=== PATIENT | male | born 1940 | race Caucasian/White ===

== ENCOUNTER 2020-07-06 00:34 | Outpatient (CLI) | payer MEDICARE, SELFPAY ==
[2020-07-06 17:26] LABS: SARS-CoV-2 RNA PCR Negative
== END 2020-07-06 00:35 | disposition home or self-care (01) ==
LOC: ANHCOVIDDT 00:34
PROVIDERS: Visit Provider Urology
DX: Z01.812 Encounter for preprocedural laboratory examination (principal); Z11.59 Encounter for screening for other viral diseases
CPT/HCPCS: 87635; C9803; U0003

== ENCOUNTER 2020-07-08 01:11 | Day surgery (SDC) | payer MEDICARE, SELFPAY ==
[2020-07-05 14:25] VITALS: BMI 22.1
--- NOTE | 2020-07-08 06:58 | P.HP_ITS ---
History of Present Illness History of Present Illness Consent: Risks, benefits, and alternatives have been discussed and questions answered. Patient agrees to proceed with procedure. Chief complaint: Bulbous Urethral Stricture Narrative: Jaciel Campos is a 80 year old male with history of urethral stricture disease. He had urethral dilatation in 10/2019 and now presents with bladder outlet obstruction both by symptoms and urodynamics. Review of Systems Cardiovascular: Cardiovascular: Denies chest pain, Denies lightheadedness, Denies palpitations and Denies dyspnea Respiratory: Respiratory: Denies dyspnea Gastrointestinal: Gastrointestinal: Denies diarrhea, Denies nausea and Denies vomiting Genitourinary: Genitourinary: Denies hematuria and Denies dysuria Endocrine: Endocrine: Denies palpitations [facility] Past Medical History Medical History CAD (coronary artery disease) GERD (gastroesophageal reflux disease) Hyperlipidemia Hypertension Surgical History Surgical History Stented coronary artery Social History Social History Smoking packs per day: 1 Smoking cigarettes per day: 20.0 Years smoked: 30 Smoking pack-years: 30.00 Smoking status: Former smoker Smoking end date: 10/22/81 Alcohol intake: former Drinks per week: 16 Substance use: never Living arrangements: with family Gender identity (if verbalized by the patient): Male Spiritual care concerns: No Meds Home Medications and Allergies Home Medications Medication Instructions Recorded Confirmed Type Xarelto 2.5 mg PO BID 11/05/19 07/05/20 History aspirin 325 mg PO DAILY 11/05/19 07/05/20 History citalopram [Celexa] 20 mg PO QAM 11/05/19 07/05/20 History lisinopril 10 mg PO QAM 11/05/19 07/05/20 History metoprolol succinate [Toprol XL] 25 mg PO QAM 11/05/19 07/05/20 History pantoprazole [Protonix] 40 mg PO QAM 11/05/19 07/05/20 History atorvastatin 20 mg PO HS 07/05/20 07/05/20 History Allergies Allergy/AdvReac Type Severity Reaction Status Date / Time iodine Allergy Intermediate Hives Verified 07/05/20 14:00 Exam Const: General: no acute distress Resp: Effort & Inspection: normal respiratory effort GI: Inspection: non-distended GI Palp: No abdominal tenderness and No Guarding due to palpation present (GI) Auscultation: normal bowel sounds Assessment and Plan Assessment and plan (1) Urethral stricture: Code(s): N35.919 - Unspecified urethral stricture, male, unspecified site Status: Acute (2) Bladder neck contracture: Code(s): N32.0 - Bladder-neck obstruction Status: Acute Assessment and Plan: * Optical internal urethrotomy.
[2020-07-08 07:00] VITALS: BP 141/55; PULSE 48; RESP 20; TEMP 36.7; O2SAT 99
[2020-07-08] MEDS: LACTATED RINGERS 1,000 ML 30 ML IV CONT (07:00)
--- NOTE | 2020-07-08 07:08 | WPDHPUPDATE1 ---
History and Physical Update Update Date/Time: 07/08/20 07:08 History and Physical has been reviewed, including an updated exam of the patient. There are NO changes in the patient's condition. Risks, benefits, and alternatives have been discussed and questions answered. Patient agrees to proceed with procedure.
--- NOTE | 2020-07-08 07:12 | WPDANESEPP ---
Anes - Eval Pre Procedure Procedure: Operation Date: 07/08/20 07:30 Proposed Procedures p Optical Internal Urethrotomy - See Ewing MD Date/Time: 07/08/20 07:12 Surgeon: rafi Preop Diagnosis: bulbous urethral stricture Pre Op Diagnosis: Bulbous Urethral Stricture Patient Data Age: 80 Gender: M Height: 5 ft 11 in Weight: 72 kg Allergies Allergy/AdvReac Type Severity Reaction Status Date / Time iodine Allergy Intermediate Hives Verified 07/05/20 14:00 Home Medications Medication Instructions Recorded Confirmed Type Xarelto 2.5 mg PO BID 11/05/19 07/05/20 History aspirin 325 mg PO DAILY 11/05/19 07/05/20 History citalopram [Celexa] 20 mg PO QAM 11/05/19 07/05/20 History lisinopril 10 mg PO QAM 11/05/19 07/05/20 History metoprolol succinate [Toprol XL] 25 mg PO QAM 11/05/19 07/05/20 History pantoprazole [Protonix] 40 mg PO QAM 11/05/19 07/05/20 History atorvastatin 20 mg PO HS 07/05/20 07/05/20 History Patient hx anesthesia problems: none Family hx anesthesia problems: none PMFSH Past Medical History Medical History CAD (coronary artery disease) Former smoker GERD (gastroesophageal reflux disease) Hyperlipidemia Hypertension Surgical History Surgical History Stented coronary artery Social History Social History Smoking packs per day: 1 Smoking cigarettes per day: 20.0 Years smoked: 30 Smoking pack-years: 30.00 Smoking status: Former smoker Smoking end date: 10/22/81 Alcohol intake: former Drinks per week: 16 Substance use: never Living arrangements: with family Gender identity (if verbalized by the patient): Male Spiritual care concerns: No Exam Day of Procedure 07/08/20 07:12 Patient weight: normal Heart: regular rate and rhythm Lungs: clear to auscultation Airway: Mallampati scale class II Neurological: alert and oriented
--- NOTE | 2020-07-08 07:16 | WPDANESEPPF ---
Anes - Initial Pre Proc Eval Procedure: Operation Date: 07/08/20 07:30 Proposed Procedures p Optical Internal Urethrotomy - See Ewing MD Date/Time: 07/08/20 07:16 Surgeon: See Ewing MD Pre Op Diagnosis: Bulbous Urethral Stricture Patient Data Age: 80 Gender: M Height: 5 ft 11 in Weight: 72 kg Allergies Allergy/AdvReac Type Severity Reaction Status Date / Time iodine Allergy Intermediate Hives Verified 07/05/20 14:00 Home Medications Medication Instructions Recorded Confirmed Type Xarelto 2.5 mg PO BID 11/05/19 07/05/20 History aspirin 325 mg PO DAILY 11/05/19 07/05/20 History citalopram [Celexa] 20 mg PO QAM 11/05/19 07/05/20 History lisinopril 10 mg PO QAM 11/05/19 07/05/20 History metoprolol succinate [Toprol XL] 25 mg PO QAM 11/05/19 07/05/20 History pantoprazole [Protonix] 40 mg PO QAM 11/05/19 07/05/20 History atorvastatin 20 mg PO HS 07/05/20 07/05/20 History Patient hx anesthesia problems: none Family hx anesthesia problems: none PMFSH Past Medical History Medical History Bladder cancer CAD (coronary artery disease) Former smoker GERD (gastroesophageal reflux disease) Hyperlipidemia Hypertension Prostate CA Surgical History Surgical History Stented coronary artery Social History Social History Smoking packs per day: 1 Smoking cigarettes per day: 20.0 Years smoked: 30 Smoking pack-years: 30.00 Smoking status: Former smoker Smoking end date: 10/22/81 Alcohol intake: former Drinks per week: 16 Substance use: never Living arrangements: with family Gender identity (if verbalized by the patient): Male Spiritual care concerns: No Anes - Eval Final PreProcedure Day of Procedure 07/08/20 07:16 Patient weight: normal Heart: regular rate and rhythm Lungs: decreased breath sounds Airway: Mallampati scale class 1 Neurological: alert and oriented Last oral intake: >/= 8 hours ASA classification: III Emergent: no Anesthetic plan: proceed Anesthesia type and monitoring: general GIVS and standard monitoring Informed Consent: The patient's anesthetic plan and its attendant risks and benefits were discussed with the patient/family/POA. Questions were solicited and answers provided to the satisfaction of the patient/family/POA.
[2020-07-08] MEDS: ceFAZolin 2 GM/D5W 50 ML 2 GM/50 ML BAG IVPB (07:21)
[2020-07-08] MEDS: LIDOCAINE HCL 2% GEL UROJET 10 ML PKG MUCOUS MEM (07:32)
--- NOTE | 2020-07-08 07:43 | P.OP_ITS ---
Procedure Note - Detailed Date of procedure: 07/08/20 Pre-op diagnosis: Bulbous Urethral Stricture Post-op diagnosis: same Procedure performed: Optical internal urethrotomy Description of procedure: The patient was brought to the operative suite where he was prepped and draped in a routine sterile fashion while in a dorsal lithotomy position after the uneventful administration of systemic sedation by the anesthesia department. 2% Lidocaine was placed in the urethra and allowed to stand for an appropriate period of time. Cystoscopy was undertaken with a 19F rigid cystoscope. He has a moderately constricting stricture of the bulbous u rethra. The bladder itself was endoscopically normal without foreign body or neoplasm. The bladder mucosa was without hyperemia. There was a single orthotopic ureteral orifice bilaterally with clear reflex of urine. Using the optical urethratome, I incised the strictured urethra at the 12 o'clock position care taken to avoid injury to the membranous urethra. An 18F Gamble catheter was placed, the bladder was emptied and the patient was taken to the recovery room in good condition. Anesthesia: GLMA Surgeon: See Ewing MD Drains: Yes (18F Gamble) Packing: No Pathology: yes Complications: No immediate complications Condition: stable Disposition: PACU
[2020-07-08 07:45] VITALS: BP 127/56; PULSE 48; RESP 12; O2SAT 99
[2020-07-08 08:15] VITALS: BP 176/68; PULSE 52; RESP 16
[2020-07-08 08:45] VITALS: BP 179/65; PULSE 48; RESP 16
--- NOTE | 2020-07-08 09:48 | SUR.PHASEII ---
0855 eleazar whitmore rn is changing bueno cath bag to a leg bag, and sending pt home with big bag for at night, per dr mckee orders. pt tolerated procedure well.
== END 2020-07-08 09:20 | disposition home or self-care (01) ==
PROVIDERS: Visit Provider Urology
PROC: (CPT 52276; principal; 2020-07-08 07:30)
DX: N35.812 Other bulbous urethral stricture, male (principal); N32.0 Bladder-neck obstruction; I25.10 Atherosclerotic heart disease of native coronary artery without angina pectoris; I10 Essential (primary) hypertension; E78.5 Hyperlipidemia, unspecified; K21.9 Gastro-esophageal reflux disease without esophagitis; Z95.5 Presence of coronary angioplasty implant and graft; Z87.891 Personal history of nicotine dependence; Z79.01 Long term (current) use of anticoagulants
CPT/HCPCS: 52276; A9270; C1769; J0690; J2704; J3010; J7120

== ENCOUNTER 2022-06-15 00:29 | Day surgery (SDC) | payer MEDICARE, SELFPAY ==
[2022-06-13 13:12] VITALS: BMI 22.4
--- NOTE | 2022-06-13 13:30 | PC.NURSE ---
Report to the Outpatient Waiting Room, entrance under the green pavilion located off [facility], at time __0945 on date ___06/15/22____. OR Time: 1144___. - You and your visitor will be asked to self-screen and do not enter if you have any COVID symptoms. - Only one visitor and NO children visitors are allowed at this time. - The patient visitor is requested to leave or wait in car when not with patient due to restrictions. - A mask is required within the hospital. Patients may have clear liquids (water, carbonated beverages, clear teas, apple juice) until 3 hours prior to surgery (0845 AM) with a maximum of 20 ounces. - No food from midnight until time of surgery - Infants may have breast milk until 4 hours before surgery, formula 6 hours prior to surgery. - Children will be allowed to drink immediately following surgery. If applicable, please bring a bottle or sippy cup to assist with drinking. Juice, water, soda, and popsicles are readily available. For infants on formula, please bring formula the day of surgery. Pacifiers are allowed. Take the following medications with a SIP of water the morning of surgery: ____METOPROLOL Medications to discontinue ASPIRIN PER DR MARIO'S INSTRUCTIONS Date to take last dose Please no make-up, nail khmer, hairspray, perfume, deodorant, or body powder the day of surgery. No jewelry (including any body piercings) or valuables the day of surgery, leave them at home. Please take a shower or bath the night before, or the morning of, surgery with an antibacterial soap. Wear comfortable, loose fitting clothing. Children are encouraged to wear pajamas. - Jewelry must be removed prior to entering the operating room. Rings and piercings that are not removed may be cut off. - The hospital will not accept responsibility for valuables. - Please leave all valuables, including medications, at home the day of surgery. If you are going home after surgery, a licensed milk driver must drive you home. - NO public transportation without another adult. - We recommend that an adult stay with you for 24 hours following discharge. - We also recommend that you do not drive, make important decision, drink alcoholic beverages, or take any drugs that were not prescribed by your health care provider for at least 24 hours after your discharge time. For Pediatric surgeries, we recommend two adults accompany the child home (only one inside the building at this time). Follow any additional instructions given to you from your surgeon. If you or anyone in your household have experienced Covid symptoms in the past week, please notify your surgeon or the nurse liaison at the phone number below for possible testing. Telephone instructions given to ___PT and asked if any additional questions and then verbalized understanding. Patient advised to call surgeon office or pre surgery nurse liaison [phone] if any additional questions.
--- NOTE | 2022-06-14 13:12 | P.PNAN_ITS ---
Anes - Initial Pre Proc Eval Procedure: Operation Date: 06/15/22 11:45 Proposed Procedures p Optical Internal Urethrotomy - See Ewing MD Date/Time: 06/14/22 13:12 Surgeon: See Ewing MD Pre Op Diagnosis: urethral stricture Patient Data Age: 82 Gender: M Height: 1.8 m Weight: 72.72 kg Allergies Allergy/AdvReac Type Severity Reaction Status Date / Time iodine Allergy Intermediate Hives Verified 06/13/22 13:09 Home Medications Medication Instructions Recorded Confirmed Type aspirin 325 mg tablet 325 mg PO DAILY 11/05/19 06/13/22 History citalopram 20 mg tablet (Celexa) 20 mg PO QAM 11/05/19 06/13/22 History lisinopril 10 mg tablet 10 mg PO QAM 11/05/19 06/13/22 History metoprolol succinate 25 mg 25 mg PO QAM 11/05/19 06/13/22 History tablet,extended release 24 hr (Toprol XL) pantoprazole 40 mg tablet,delayed 40 mg PO QAM 11/05/19 06/13/22 History release (Protonix) atorvastatin 20 mg tablet 20 mg PO HS 07/05/20 06/13/22 History Patient hx anesthesia problems: none Family hx anesthesia problems: none Results Review: All pre-operative results and documents have been reviewed as part of the pre- operative evaluation. [facility] Past Medical History Medical History Bladder cancer CAD (coronary artery disease) Former smoker GERD (gastroesophageal reflux disease) Hyperlipidemia Hypertension Prostate CA Surgical History Surgical History Stented coronary artery Social History Social History Smoking packs per day: 1 Smoking cigarettes per day: 20.0 Years smoked: 30 Smoking pack-years: 30.00 Smoking status: Former smoker Tobacco type: cigarettes Second hand tobacco smoke exposure: No Smoking end date: 10/22/81 Additional smoking assessment comments: [id number] Alcohol intake: former Drinks per week: 16 Alcohol use details: QUIT 2010 Substance use: never Substance use type: does not use Living arrangements: with family Gender identity (if verbalized by the patient): Male Spiritual care concerns: No Anes - Eval Final PreProcedure Day of Procedure 06/14/22 13:12 Patient weight: normal Heart: regular rate and rhythm Lungs: decreased breath sounds Airway: Mallampati scale class 1 Neurological: alert and oriented Last oral intake: >/= 8 hours ASA classification: III Emergent: no Anesthetic plan: proceed Anesthesia type and monitoring: general GIVS and standard monitoring Results Review: All pre-operative results and documents have been reviewed as part of the pre- operative evaluation. Informed Consent: The patient's anesthetic plan and its attendant risks and benefits were discussed with the patient/family/POA. Questions were solicited and answers provided to the satisfaction of the patient/family/POA.
--- NOTE | 2022-06-15 06:49 | WPDHPUPDATE1 ---
History and Physical Update Update Date/Time: 06/15/22 06:49 History and Physical has been reviewed, including an updated exam of the patient. There are NO changes in the patient's condition. Risks, benefits, and alternatives have been discussed and questions answered. Patient agrees to proceed with procedure.
--- NOTE | 2022-06-15 08:40 | ECG_ITS ---
Measurements Intervals [place] Rate: 42 P: 68 CO: 206 QRS: 29 QRSD: 104 T: 77 QT: 496 QTc: 417 Interpretive Statements SINUS BRADYCARDIA WITH FIRST-DEGREE AV BLOCK BORDERLINE ECG NO PREVIOUS ECG AVAILABLE FOR COMPARISON Electronically Signed On 06-15-2022 15:23:52 CDT by Nicko Velez M.D.
[2022-06-15 10:04] VITALS: BP 173/60; PULSE 42; RESP 16; TEMP 36.2; O2SAT 100
[2022-06-15] MEDS: LACTATED RINGERS 1,000 ML 30 ML IV CONT (10:38)
[2022-06-15] MEDS: ceFAZolin 2 GM/D5W 50 ML 2 GM/50 ML BAG IVPB (11:18)
[2022-06-15] MEDS: LIDOCAINE HCL 2% GEL UROJET 10 ML PKG MUCOUS MEM (11:36)
[2022-06-15 11:51] VITALS: BP 113/46; PULSE 40; RESP 15; O2SAT 100
[2022-06-15 12:15] VITALS: BP 146/55; PULSE 44; RESP 20
--- NOTE | 2022-06-15 12:19 | W.PM.PROC2 ---
Procedure Note - Detailed Date of Procedure 06/15/22 Pre-op Diagnosis U rethral stricture Post-op Diagnosis Same Procedure Performed Optical internal urethrotomy Surgeon See Ewing MD Description of Procedure The patient was brought to the operative suite where he was prepped and draped in a routine sterile fashion while in a dorsal lithotomy position after the uneventful administration of systemic sedation by the anesthesia department. 2% Lidocaine was placed in the urethra and allowed to stand for an appropriate period of time. Cystoscopy was undertaken with a 19F rigid cystoscope. He has a moderately constricting stricture of the bulbous urethra. The bladder itself was endoscopically normal without foreign body or neoplasm. The bladder mucosa was without hyperemia. There was a single orthotopic ureteral orifice bilaterally with clear reflex of urine. Using the optical urethrotome, I incised the strictured urethra at the 12 o'clock position care taken to avoid injury to the membranous urethra. An 18F Gamble catheter was placed, the bladder was emptied and the patient was taken to the recovery room in good condition. Drains Yes Pathology None sent Complications No immediate complications Condition Stable
[2022-06-15 12:45] VITALS: BP 137/96; PULSE 52; RESP 20
[2022-06-15 13:15] VITALS: BP 129/53; PULSE 50; RESP 20
== END 2022-06-15 13:25 | disposition home or self-care (01) ==
PROVIDERS: Visit Provider Urology
PROC: (CPT 52276; principal; 2022-06-15 11:45)
DX: N99.111 Postprocedural bulbous urethral stricture, male (principal); N52.9 Male erectile dysfunction, unspecified; Z85.51 Personal history of malignant neoplasm of bladder; Z85.46 Personal history of malignant neoplasm of prostate; Z79.82 Long term (current) use of aspirin; R00.1 Bradycardia, unspecified; I44.0 Atrioventricular block, first degree; I25.10 Atherosclerotic heart disease of native coronary artery without angina pectoris; K21.9 Gastro-esophageal reflux disease without esophagitis; Z87.891 Personal history of nicotine dependence; I10 Essential (primary) hypertension; E78.5 Hyperlipidemia, unspecified; Z95.5 Presence of coronary angioplasty implant and graft
CPT/HCPCS: 52276; 93005; A9270; C1769; J0690; J2704; J7120

== ENCOUNTER 2023-04-26 03:40 | Day surgery (SDC) | payer MEDICARE, SELFPAY ==
[2023-04-19 09:35] VITALS: BMI 23.1
--- NOTE | 2023-04-19 09:49 | PC.NURSE ---
PRE-OP INSTRUCTIONS, PLEASE READ CAREFULLY Report to the Outpatient Waiting Room, entrance under the green pavilion located off [facility], at time _0815_ on date _04/26/23_. Planned Procedure Time: _1015_. Time changes happen often and if your time is changed the preop area will call you the afternoon before. - You and your visitor will be asked to self-screen and do not enter if you have any COVID symptoms. - A mask is optional within the hospital at this time. Patients may have clear liquids (water, carbonated beverages, clear teas, apple juice) until 3 hours prior to surgery (0725 AM) with a maximum of 20 ounces. - No food from midnight until time of surgery Take the following medications with a SIP of water the morning of surgery: _CELEXA, TOPROL_ DO NOT STOP ANY OF YOUR OTHER PRESCRIPTION MEDICATIONS PRIOR TO SURGERY ?EXCEPT THE FOLLOWING Medications to discontinue - _ASPIRIN PER DR. MARIO'S INSTRUCTIONS_ Please no make-up, nail albanian, hairspray, perfume, deodorant, or body powder the day of surgery. No jewelry (including any body piercings) or valuables the day of surgery, leave them at home. Please take a shower or bath the night before, or the morning of, surgery with an antibacterial soap. Wear comfortable, loose fitting clothing. Children are encouraged to wear pajamas. - Jewelry must be removed prior to entering the operating room. Rings and piercings that are not removed may be cut off. - The hospital will not accept responsibility for valuables. - Please leave all valuables, including medications, at home the day of surgery. If you are going home after surgery, a licensed piledriver carpenter must drive you home. - NO public transportation without another adult if you receive anesthesia. - We recommend that an adult stay with you for 24 hours following discharge. - We also recommend that you do not drive, make important decision, drink alcoholic beverages, or take any drugs that were not prescribed by your health care provider for at least 24 hours after your discharge time. Follow any additional instructions given to you from your surgeon. If you or anyone in your household have experienced Covid symptoms in the past week, please notify your surgeon or the nurse liaison at the phone number below for possible testing. Telephone instructions given to _PATIENT_and asked if any additional questions and then verbalized understanding. Patient advised to call surgeon office or pre surgery nurse liaison [phone] if any additional questions.
--- NOTE | 2023-04-20 12:09 | P.HP_ITS ---
History of Present Illness History of Present Illness Consent: Risks, benefits, and alternatives have been discussed and questions answered. Patient agrees to proceed with procedure. Chief complaint: bladder CA and bulbulous urethral stricture Narrative: Jaciel Campos is a 83 year old male with a history of both recurrent urothelial carcinoma bladder and recurrent urethral stricture disease. Recent attempted surveillance cystoscopy was on successive because of recurrent bulbous urethral stricture. Presents today for cysto with urethral dilatation and possible TURBT. He is aware the risk including, but not limited to, adverse cardiopulmonary events and recurrent stricture and neoplasm of the bladder Review of Systems Review of Systems: All systems reviewed & are unremarkable except as noted in HPI and below PMFSH Past Medical History Medical History Bladder cancer CAD (coronary artery disease) Former smoker GERD (gastroesophageal reflux disease) Hyperlipidemia Hypertension Prostate CA Surgical History Surgical History Stented coronary artery Social History Social History Smoking packs per day: 1 Smoking cigarettes per day: 20.0 Years smoked: 30 Smoking pack-years: 30.00 Smoking status: Former smoker Tobacco type: cigarettes Second hand tobacco smoke exposure: No Smoking end date: 10/22/79 Additional smoking assessment comments: [id number] Alcohol intake: former Drinks per week: 16 Alcohol use details: QUIT 2010 Substance use: never Substance use type: does not use Living arrangements: alone Gender identity (if verbalized by the patient): Male Spiritual care concerns: No Meds Home Medications and Allergies Home Medications Medication Instructions Recorded Confirmed Type citalopram 20 mg tablet (Celexa) 20 mg PO QAM 11/05/19 04/19/23 History lisinopril 10 mg tablet 10 mg PO QAM 11/05/19 04/19/23 History metoprolol succinate 25 mg 25 mg PO QAM 11/05/19 04/19/23 History tablet,extended release 24 hr (Toprol XL) pantoprazole 40 mg tablet,delayed 40 mg PO QAM 11/05/19 04/19/23 History release (Protonix) atorvastatin 20 mg tablet 20 mg PO HS 07/05/20 04/19/23 History aspirin 81 mg tablet,delayed 81 mg PO DAILY 04/19/23 04/19/23 History release Allergies Allergy/AdvReac Type Severity Reaction Status Date / Time iodine Allergy Intermediate Hives Verified 04/19/23 09:32 Exam Const: General: no acute distress Resp: Effort & Inspection: normal respiratory effort GI: Inspection: non-distended GI Palp: No abdominal tenderness and No Guarding due to palpation present (GI) Auscultation: normal bowel sounds Assessment and Plan Assessment and plan (1) Urethral stricture: Code(s): N35.919 - Unspecified urethral stricture, male, unspecified site Status: Acute Assessment and Plan: * Cystoscopy, urethral dilatation, possible TURBT
--- NOTE | 2023-04-25 13:34 | WPDANESEPPF ---
Anes - Initial Pre Proc Eval Procedure: Operation Date: 04/26/23 09:15 Proposed Procedures p Cystoscopy, Urethral Dilatation, - See Ewing MD s Possible Transurethral Resection of Bladder Tumor - See Ewing MD Date/Time: 04/25/23 13:34 Surgeon: See Ewing MD Pre Op Diagnosis: bladder CA and bulbulous urethral stricture Patient Data Age: 83 Gender: M Height: 1.8 m Weight: 75 kg Allergies Allergy/AdvReac Type Severity Reaction Status Date / Time iodine Allergy Intermediate Hives Verified 04/26/23 08:00 Home Medications Medication Instructions Recorded Confirmed Type citalopram 20 mg tablet (Celexa) 20 mg PO QAM 11/05/19 04/26/23 History lisinopril 10 mg tablet 10 mg PO QAM 11/05/19 04/26/23 History metoprolol succinate 25 mg 25 mg PO QAM 11/05/19 04/26/23 History tablet,extended release 24 hr (Toprol XL) pantoprazole 40 mg tablet,delayed 40 mg PO QAM 11/05/19 04/26/23 History release (Protonix) atorvastatin 20 mg tablet 20 mg PO HS 07/05/20 04/26/23 History aspirin 81 mg tablet,delayed 81 mg PO DAILY 04/19/23 04/26/23 History release Patient hx anesthesia problems: none Family hx anesthesia problems: none Results Review: All pre-operative results and documents have been reviewed as part of the pre-operative evaluation. [facility] Past Medical History Medical History (Updated 04/25/23 @ 13:35 by George Freeman DO) Bladder cancer CAD (coronary artery disease) Former smoker GERD (gastroesophageal reflux disease) Hyperlipidemia Hypertension MICHEAL (obstructive sleep apnea) Bipap Prostate CA Surgical History Surgical History (Updated 04/25/23 @ 13:35 by George Freeman DO) Stented coronary artery x2 Social History Social History Smoking packs per day: 1 Smoking cigarettes per day: 20.0 Years smoked: 30 Smoking pack-years: 30.00 Smoking status: Former smoker Tobacco type: cigarettes Second hand tobacco smoke exposure: No Smoking end date: 10/22/79 Additional smoking assessment comments: [id number] Alcohol intake: former Drinks per week: 16 Alcohol use details: QUIT 2010 Substance use: never Substance use type: does not use Living arrangements: alone Gender identity (if verbalized by the patient): Male Spiritual care concerns: No Anes - Eval Final PreProcedure Day of Procedure 04/25/23 13:34 Patient weight: normal Heart: regular rate and rhythm Lungs: clear to auscultation and normal air movement Airway: Mallampati scale class II Neurological: alert and oriented Last oral intake: >/= 8 hours ASA classification: III Emergent: no Anesthetic plan: proceed Anesthesia type and monitoring: general LMA and standard monitoring Results Review: All pre-operative results and documents have been reviewed as part of the pre-operative evaluation. Informed Consent: The patient's anesthetic plan and its attendant risks and benefits were discussed with the patient/family/POA. Questions were solicited and answers provided to the satisfaction of the patient/family/POA.
[2023-04-26] VITALS (7 sets, daily range): BP systolic 152–189; BP diastolic 58–71; PULSE 48–66; RESP 12–18; TEMP 36.6; O2SAT 95–100
--- NOTE | ~2023-04-26 | XR_ITS ---
EXAMINATION: XR fluoroscopy no charge DATE: 04/26/2023 10:50 INDICATION: Urethral stricture. TECHNIQUE: A single intraoperative fluoroscopic view of the pelvis was obtained. I was not present. F luoroscopy exposure time was 7 seconds. COMPARISON: None. FINDINGS: There is a dilator in the urethra. There are changes of posterior fusion procedure in lumba r spine. IMPRESSION: 1. Dilator in the urethra. Reviewed, dictated and finalized at location A. IMPRESSION: 1. Dilator in the urethra.
--- NOTE | 2023-04-26 06:35 | WPDHPUPDATE1 ---
History and Physical Update Update Date/Time: 04/26/23 06:35 History and Physical has been reviewed, including an updated exam of the patient. There are NO changes in the patient's condition. Risks, benefits, and alternatives have been discussed and questions answered. Patient agrees to proceed with procedure.
[2023-04-26] MEDS: LACTATED RINGERS 1,000 ML 30 ML IV CONT (08:16)
--- NOTE | 2023-04-26 08:26 | SUR.PREOP ---
0750 PT INFORMED OF SURGERY TIME DELAY
[2023-04-26] MEDS: ceFAZolin 2 GM/D5W 50 ML 2 GM/50 ML BAG IVPB (10:11)
--- NOTE | 2023-04-26 10:49 | W.PM.PROC2 ---
Procedure Note - Detailed Date of Procedure 04/26/23 Pre-op Diagnosis History of bladder CA and bulbous urethral stricture Post-op Diagnosis Same Procedure Performed Cystoscopy, urethral dilatation Surgeon See Ewing MD Anesthesia MAC Description of Procedure Patient is brought to the operative suite where he was prepped draped in routine sterile fashion while in dorsal lithotomy position. 2% xylocaine jelly was introduced intraurethrally and systemic sedation is administered per the anesthesia department. Cystoscopy is undertaken with a 19 F rigid cystoscope. He has a very tight bulbous urethral stricture which I dilated from 10 F to 24 F over a guidewire using Amplatz dilators. Cystoscopy with the rigid ureteral scope showed normal bladder mucosa without intravesical foreign body or neoplasm. There was a single orthotopic ureteral orifice bilaterally. Drains Yes Packing No Pathology None sent Complications No immediate complications Condition Stable
--- NOTE | 2023-04-26 11:01 | SUR.PHASEI ---
Dr. Ewing at bedside, ordered to remove bueno catheter before patient is discharged from PACU.
--- NOTE | 2023-04-26 11:17 | SUR.PHASEI ---
Notified Dr. Freeman of patient's elevated SBP 180's. Order received.
[2023-04-26] MEDS: hydrALAZINE HCL 20 MG/ML VIAL 5 MG IV PUSH (11:22)
== END 2023-04-26 12:42 | disposition home or self-care (01) ==
PROVIDERS: Visit Provider Urology
PROC: 0T7D8ZZ Dilation of Urethra, Via Natural or Artificial Opening Endoscopic (ICD-10-PCS; CPT 52281; principal; 2023-04-26 09:15)
DX: N35.912 Unspecified bulbous urethral stricture, male (principal); Z85.51 Personal history of malignant neoplasm of bladder; I25.10 Atherosclerotic heart disease of native coronary artery without angina pectoris; I10 Essential (primary) hypertension; E78.5 Hyperlipidemia, unspecified; K21.9 Gastro-esophageal reflux disease without esophagitis; G47.33 Obstructive sleep apnea (adult) (pediatric); Z85.46 Personal history of malignant neoplasm of prostate; Z87.891 Personal history of nicotine dependence; Z79.82 Long term (current) use of aspirin; Z95.5 Presence of coronary angioplasty implant and graft
CPT/HCPCS: 52281; 99199; C1726; J0360; J0690; J1100; J2405; J2704; J3010; J7120

== ENCOUNTER 2024-07-24 03:06 | Day surgery (SDC) | payer MEDICARE, SELFPAY ==
[2024-07-22 15:21] VITALS: BMI 25.0
--- NOTE | 2024-07-22 15:50 | PC.NURSE ---
Report to the Outpatient Waiting Room, entrance under the green pavilion located off [facility], at time __1:30PM on date __07/24/24 . Planned Procedure Time: __3:30PM .? Time changes happen often and if your time is changed the preop area will call you the afternoon before. - You and your visitor will be asked to self-screen and do not enter if you have any COVID symptoms. Please call surgeon if you need to reschedule. - A mask is optional within the hospital at this time. Patients may have clear liquids (water, carbonated beverages, clear teas, apple juice) until 3 hours prior to surgery with a maximum of 20 ounces. - No food from midnight until time of surgery and no smoking - Infants may have breast milk until 4 hours before surgery, infant formula 6 hours prior to surgery. - Children will be allowed to drink immediately following surgery.? If applicable, please bring a bottle or sippy cup to assist with drinking. Juice, water, soda, and popsicles are readily available.? For infants on formula, please bring formula the day of surgery.? Pacifiers are allowed. Take only the following medications with a SIP of water on the morning of surgery: ___CITALOPRAM & TRELEGY ELLIPTA INHALER DO NOT STOP ANY OF YOUR OTHER PRESCRIPTION MEDICATIONS PRIOR TO SURGERY EXCEPT THE FOLLOWING Medications to discontinue per physician ____HOLD ASPIRIN STARTING NOW PER DR MARIO(07/22/24) Please no make-up, nail british, hairspray, perfume, deodorant, or body powder the day of surgery.? No jewelry (including any body piercings) or valuables the day of surgery, leave them at home.? Please take a shower or bath the night before, or the morning of, surgery with an antibacterial soap.? Wear comfortable, loose fitting clothing.? Children are encouraged to wear pajamas. - Jewelry must be removed prior to entering the operating room.? Rings and piercings that are not removed may be cut off. - The hospital will not accept responsibility for valuables.? - Please leave all valuables, including medications, at home the day of surgery. If you are going home after surgery, a licensed garbage collector driver must drive you home.? - NO public transportation without another adult if you receive anesthesia. - We recommend that an adult stay with you for 24 hours following discharge. - We also recommend that you do not drive, make important decision, drink alcoholic beverages, or take any drugs that were not prescribed by your health care provider for at least 24 hours after your discharge time. For Pediatric surgeries, we recommend two adults accompany the child home. Follow any additional instructions given to you from your surgeon. Telephone instructions given to ___PATIENT and asked if any additional questions and then verbalized understanding. Patient advised to call surgeon office or pre surgery nurse liaison [phone] if any additional questions.
[2024-07-24] VITALS (7 sets, daily range): BP systolic 161–171; BP diastolic 58–77; PULSE 53–75; RESP 14–18; TEMP 36.7–36.9; O2SAT 94–100
--- NOTE | ~2024-07-24 | XR_ITS ---
EXAMINATION: XR fluoroscopy no charge DATE: 07/24/2024 15:20 INDICATION: Urethral stricture. Bladder cancer. TECHNIQUE: 2 intraoperative fluoroscopic views of the pelvis were obtained. I was not present. Fluoro scopy exposure time was 7 seconds. COMPARISON: None. FINDINGS: There are brachytherapy seeds in the prostate. There are changes of posterior fusion proced ure in lumbar spine. There is a wire in the bladder. A dilator is noted in the urethra. IMPRESSION: 1. Dilatation of the urethra. Reviewed, dictated and finalized at location A.
--- NOTE | 2024-07-24 06:41 | WPDHPUPDATE1 ---
History and Physical Update Update Date/Time: 07/24/24 06:41 History and Physical has been reviewed, including an updated exam of the patient. There are NO changes in the patient's condition. Risks, benefits, and alternatives have been discussed and questions answered. Patient agrees to proceed with procedure.
[2024-07-24] MEDS: LACTATED RINGERS 1,000 ML 30 ML IV CONT (13:40)
--- NOTE | 2024-07-24 13:57 | WPDANESEPPF ---
Anes - Initial Pre Proc Eval Procedure: Operation Date: 07/24/24 15:30 Proposed Procedures p Cystoscopy, Urethral Dilatation, - See Ewing MD s Possible Trans Urethral Resection Bladder Tumor - See Ewing MD Date/Time: 07/24/24 13:57 Surgeon: See Ewing MD Pre Op Diagnosis: bladder CA Patient Data Age: 84 Gender: M Height: 1.78 m Weight: 79 kg Allergies Allergy/AdvReac Type Severity Reaction Status Date / Time iodine Allergy Intermediate Hives Verified 07/22/24 15:09 Home Medications Medication Instructions Recorded Confirmed Type citalopram 20 mg tablet (Celexa) 20 mg PO QAM 11/05/19 07/22/24 History lisinopril 10 mg tablet 10 mg PO QAM 11/05/19 07/22/24 History pantoprazole 40 mg tablet,delayed 40 mg PO QAM 11/05/19 07/22/24 History release (Protonix) atorvastatin 20 mg tablet 20 mg PO HS 07/05/20 07/22/24 History aspirin 81 mg tablet,delayed 81 mg PO DAILY 04/19/23 07/22/24 History release dutasteride 0.5 mg capsule 0.5 mg PO DAILY 07/22/24 07/22/24 History fluticasone fur. 100 mcg-umeclid 1 inh inhalation QAM 07/22/24 07/22/24 History 62.5 mcg-vilant 25 mcg inhalat.powder (Trelegy Ellipta) tamsulosin 0.4 mg capsule 0.4 mg PO DAILY 07/22/24 07/22/24 History Patient hx anesthesia problems: none Family hx anesthesia problems: none Results Review: All pre-operative results and documents have been reviewed as part of the pre-operative evaluation. [facility] Past Medical History Medical History Bladder cancer CAD (coronary artery disease) Former smoker GERD (gastroesophageal reflux disease) Hyperlipidemia Hypertension MICHEAL (obstructive sleep apnea) Bipap Prostate CA Surgical History Surgical History Stented coronary artery x2 Social History Social History Smoking packs per day: 1 Smoking cigarettes per day: 20.0 Years smoked: 40 Smoking pack-years: 40.00 Smoking status: Former smoker Tobacco type: cigarettes Second hand tobacco smoke exposure: No Smoking end date: 04/21/82 Additional smoking assessment comments: [id number] Alcohol intake: former Drinks per week: 16 Alcohol use details: QUIT 2010 Substance use: never Substance use type: does not use Living arrangements: alone Gender identity (if verbalized by the patient): Male Spiritual care concerns: No Anes - Eval Final PreProcedure Day of Procedure 07/24/24 13:57 Patient weight: overweight Heart: regular rate and rhythm Lungs: clear to auscultation and decreased breath sounds Airway: Mallampati scale and special considerations (Edentulous. ) Neurological: alert and oriented Last oral intake: >/= 8 hours ASA classification: III Emergent: no Anesthetic plan: proceed Anesthesia type and monitoring: general LMA and standard monitoring Results Review: All pre-operative results and documents have been reviewed as part of the pre-operative evaluation. Hx CAD, s/p PTCA 2003, ex smoker, quit 1981, HTN, hyperlipidemia, MICHEAL, occ on CPAP. Informed Consent: The patient's anesthetic plan and its attendant risks and benefits were discussed with the patient/family/POA. Questions were solicited and answers provided to the satisfaction of the patient/family/POA.
[2024-07-24] MEDS: ceFAZolin 2 GM/D5W 50 ML 2 GM/50 ML BAG IVPB (14:53)
--- NOTE | 2024-07-24 15:23 | W.PM.PROC2 ---
Procedure Note - Detailed Date of Procedure 07/24/24 Pre-op Diagnosis Bulbous urethral stricture, history of bladder cancer Post-op Diagnosis Same Procedure Performed Cystoscopy, urethral dilatation Surgeon See Ewing MD Anesthesia General Description of Procedure patient is brought to the operative suite was prepped draped in routine sterile fashion while in dorsal lithotomy position. Cystoscopy was undertaken with a 19 F rigid cystoscope. He has a very very tight bulbous urethral stricture. Was able to pass a 0.035 in glidewire into the bladder under fluoroscopy. The stricture dilated quite easily from 8 F to 24 F using Amplatz dilators. Cystoscopy with a rigid cystoscope showed no identifiable prostate tissue. His bladder mucosa is normal. There was no intravesical foreign body or neoplasm. Has a single orthotopic ureteral orifice bilaterally. The cystoscope was removed and an 18 F catheter was placed to drainage. I plan to leave the catheter in for 4 days. Drains Yes Packing No Pathology None sent Complications No immediate complications
== END 2024-07-24 17:05 | disposition home or self-care (01) ==
PROVIDERS: Visit Provider Urology
PROC: 0T7D8ZZ Dilation of Urethra, Via Natural or Artificial Opening Endoscopic (ICD-10-PCS; CPT 52281; principal; 2024-07-24 15:30)
DX: N35.912 Unspecified bulbous urethral stricture, male (principal); I10 Essential (primary) hypertension; I25.10 Atherosclerotic heart disease of native coronary artery without angina pectoris; E78.5 Hyperlipidemia, unspecified; G47.33 Obstructive sleep apnea (adult) (pediatric); K21.9 Gastro-esophageal reflux disease without esophagitis; Z85.46 Personal history of malignant neoplasm of prostate; Z85.51 Personal history of malignant neoplasm of bladder; Z95.5 Presence of coronary angioplasty implant and graft; Z79.51 Long term (current) use of inhaled steroids; Z79.82 Long term (current) use of aspirin; Z87.891 Personal history of nicotine dependence
CPT/HCPCS: 52281; 99199; C1726; C1769; J0690; J2003; J2405; J2704; J3010; J7120